=== PATIENT | female | born 1990 | race Caucasian/White ===

== ENCOUNTER 2023-06-13 12:31 | Emergency (ER) | payer MEDICAID ==
[~2023-06-13] VITALS: Ht 160 cm; Wt 68.2 kg
[2023-06-13 12:38] VITALS: TEMP 99.2
[2023-06-13] MEDS ORDERED: LIDOCAINE 1%/EPI 1:200,000/PF 30 ML VIAL SQ ONE (14:45)
[2023-06-13] MEDS ORDERED: SULFAMETHOX/TRIMETH DS 800-160 MG/TABLET PO ONE (14:45)
[2023-06-13] MEDS ORDERED: TraMADol HCL 50 MG TABLET PO ONE (14:45)
[2023-06-13] MEDS ORDERED: BACTDSB PO (15:55)
[2023-06-13 16:19] VITALS: BP 120/72; PULSE 89; RESP 16
== END 2023-06-13 16:20 | disposition home or self-care (01) ==
LOC: EMS 12:33
DX: L02.01 Cutaneous abscess of face (principal); Z90.49 Acquired absence of other specified parts of digestive tract
CPT/HCPCS: 99283; 10060; 87205; 87070; J3490; 87186